=== PATIENT | female | born 1985 | race Caucasian/White ===

== ENCOUNTER 2019-03-09 12:44 | Outpatient (CLI) | payer OTHER ==
[2019-03-09 16:23] LABS: Hematocrit 35.4 % (30.3-42.9); Hemoglobin 11.4 gm/dl (10.1-14.3); Mean Corpuscular HGB Conc 32 % (30-34); Mean Corpuscular Volume 78 fl (79-97); Platelet Count 190 K/mm3 (140-440); Red Blood Count 4.55 M/mm3 (3.65-5.03); Red Cell Distribution Width 16.9 % (13.2-15.2)
[2019-03-09 16:48] LABS: Alanine Aminotransferase 8 units/L (7-56); Uric Acid 4.1 mg/dL (3.5-7.6)
[2019-03-09 19:11] VITALS: BP 120/65
--- NOTE | 2019-03-09 19:12 | Ultrasound Report ---
PROCEDURE: US OB BPP WO NON-STRESS HISTORY: well being FINDINGS: Biophysical profile was performed. Biophysical profile was 8 of 8. cardiac activity i s present at 136 bpm. IMPRESSION: Biophysical 8 of 8 This document is electronically signed by Zev Durant MD., Mar 09 2019 07:10:10 PM ET
== END 2019-03-09 19:30 | disposition home or self-care (01) ==
LOC: TRG 12:44
PROVIDERS: ATTEND Obstetrics & Gynecology
DX: O47.1 False labor at or after 37 completed weeks of gestation (principal); Z3A.39 39 weeks gestation of pregnancy
CPT/HCPCS: 36415; 76819; 82565; 83615; 84450; 84460; 84550; 85027

== ENCOUNTER 2019-03-11 23:16 | Inpatient (IN) | payer MEDICAID, OTHER ==
[2019-03-12] MEDS ORDERED: PITOCin/NS 20 UNIT/1000ML DRIP 20,000 MILLIUNITS/1,000 ML BAG IV ONE ×2 (02:22→06:25)
[2019-03-12] MEDS ORDERED: LACTATED RINGERS 1,000 ML ONE (02:22)
[2019-03-12] MEDS ORDERED: AMPICILLIN/NS 2 GM/100 ML 2 GM/100 ML BAG IV ONE ×2 (02:22→02:32)
[2019-03-12] MEDS ORDERED: BRETHINE IVP PRN (02:32)
[2019-03-12] MEDS ORDERED: MINERAL OIL PO PRN (02:32)
[2019-03-12] MEDS ORDERED: XYLOCAINE 2% INFILTRATI ONE (02:32)
[2019-03-12] MEDS ORDERED: SUBLIMAZE IV PRN (02:32)
[2019-03-12] MEDS ORDERED: STADOL IV PRN (02:32)
[2019-03-12] MEDS ORDERED: BRETHINE SUB-Q PRN (02:32)
[2019-03-12 02:46] LABS: Hematocrit 37.3 % (30.3-42.9); Hemoglobin 12.1 gm/dl (10.1-14.3); Mean Corpuscular HGB Conc 32 % (30-34); Mean Corpuscular Volume 78 fl (79-97); Platelet Count 173 K/mm3 (140-440); Red Blood Count 4.82 M/mm3 (3.65-5.03); Red Cell Distribution Width 17.1 % (13.2-15.2)
[2019-03-12] MEDS ORDERED: LACTATED RINGERS 1,000 ML IV SCH (03:00)
[2019-03-12] MEDS ORDERED: PITOCin/NS 30 UNIT/500ML 30 UNITS/500 ML BAG IV SCH (03:00)
[2019-03-12] MEDS ORDERED: PITOCin/NS 20 UNIT/1000ML DRIP 20 UNITS/1,000 ML BAG IV SCH (03:00)
[2019-03-12] MEDS ORDERED: AMPICILLIN/NS 1 GM/50 ML 1 GM/50 ML BAG IV SCH (06:33)
--- NOTE | 2019-03-12 07:59 | Procedure Note ---
OB Delivery Note - Delivery Date of Delivery: 03/12/19 Surgeon: TIMUR MCCOY (JESS) Estimated blood loss: 200cc - Vaginal Delivery presentation: vertex Delivery position: OA Intrapartum events: none Delivery induction: none Delivery monitor: external FHT, external uterine Route of delivery: (03:49) Delivery placenta: spontaneous (04:02) Delivery cord: 3 umbilical vessels Episiotomy: none Delivery laceration: none Anesthesia: none Delivery comments: viable male infant, JAYNE position at 03:49. placed [id number] on mothers abdomen. Delayed cord clamping then cut by FOB with my guidance. Cord blood collected per protocol. Spontaneous eastman delivery of intact placenta at 04:02. 3VC. Discarded. FF@U-1. Small 1st degree laceration, approximates well, left unrepaired. Infant and mother left in stable condition in L&D. EBL 200ml. - Infant A at 1 minute: 8 at 5 minutes: 9 Infant Gender: Male (8lbs 13oz, 3993 grams, 22")
--- NOTE | 2019-03-12 08:08 | History and Physical Report ---
History of Present Illness Date of examination: 03/12/19 Date of admission: 03/12/19 02:08 Chief complaint: Intense labor pains History of present illness: 33 yo Fe , German 03/12/2019, 40w0d presents in active labor. Pt received care at [facility]. care unremarkable. Past History Past Medical History: no pertinent history Past Surgical History: no surgical history [employer]ORY TEACHER History: denies: abnormal PAP smear, chlamydia, gonorrhea, hepatitis B, hepatitis C, herpes, HIV, syphilis, trichomonas Family/Genetic History: denies: none Social history: no significant social history, , lives with family, full code. denies: smoking, alcohol abuse, prescription drug abuse, IV drug use - Obstetrical History Expected Date of Delivery: 03/12/19 Actual Gestation: 40 Week(s) 0 Day(s) : 5 Para: 4 Hx # Term Pregnancies: 4 Number of Pregnancies: 0 Spontaneous Abortions: 0 Induced : 0 Number of Living Children: 4 Medications and Allergies Allergies Allergy/AdvReac Type Severity Reaction Status Date / Time No Known Allergies Allergy Verified 03/09/19 15:24 Home Medications Medication Instructions Recorded Confirmed Last Taken Type Docusate Sodium [Colace] 100 mg PO BID #60 capsule 07/03/13 Unknown Rx Ferrous Sulfate [Feosol 325 MG tab] 325 mg PO BID #60 tablet 07/03/13 Unknown Rx Vit-Fe Fumar-FA [ 1 each PO ONCE #30 tablet 07/03/13 Unknown Rx Vitamin] Ibuprofen [Motrin] 800 mg PO TID PRN #14 tablet 07/04/13 Unknown Rx Methylergonovine [Methergine] 0.2 mg PO Q8HR #9 tablet 07/04/13 Unknown Rx ALBUTEROL Inhaler (OR & NICU) 2 puff IH QID PRN #1 inhalation 02/15/14 Unknown Rx [ProAir HFA Inhaler] Azithromycin [Zithromax Z-FEDE] 250 mg PO DAILY #6 tablet 02/15/14 Unknown Rx methylPREDNISolone [Medrol Dose 4 mg PO DAILY 6 Days tab 02/15/14 Unknown Rx Fede] Active Meds: Active Medications Acetaminophen (Tylenol) 650 mg PO Q4H PRN PRN Reason: Pain MILD(1-3)/Fever >100.5/CAMPBELL Bisacodyl (Dulcolax) 10 mg MT BID PRN PRN Reason: Constipation Butorphanol Tartrate (Stadol) 2 mg IV Q2H PRN PRN Reason: Pain , Severe (7-10) Diphenhydramine HCl (Benadryl) 25 mg PO Q6H PRN PRN Reason: Itching Ephedrine Sulfate (Ephedrine Sulfate) 10 mg IV Q2M PRN PRN Reason: Hypotension Fentanyl (Sublimaze) 100 mcg IV Q2H PRN PRN Reason: Labor Pain Last Admin: 03/12/19 03:21 Dose: 100 mcg Documented by: Oxytocin/Sodium Chloride (Pitocin/Ns 20 Unit/1000ml Drip) 20 units in 1,000 mls @ 125 mls/hr IV DIRECT DAMION Last Admin: 03/12/19 04:02 Dose: 125 mls/hr Documented by: Oxytocin/Sodium Chloride (Pitocin/Ns 30 Unit/500ml) 30 units in 500 mls @ 1 mls/hr IV TITR DAMION; Protocol Lactated Ringer's (Lactated Ringers) 1,000 mls @ 125 mls/hr IV DIRECT DAMION Ampicillin Sodium (Ampicillin/Ns 1 Gm/50 Ml) 1 gm in 50 mls @ 100 mls/hr IV Q 4HR DAMION; Protocol Ibuprofen (Ibuprofen) 600 mg PO Q6H DAMION Magnesium Hydroxide (Milk Of Magnesia) 30 ml PO HS PRN PRN Reason: Constipation Mineral Oil (Mineral Oil) 30 ml PO QHS PRN PRN Reason: Constipation Multi-Ingredient Ointment (Lansinoh) 1 applic TP PRN PRN PRN Reason: Sore Nipples Ondansetron HCl (Zofran) 4 mg IV Q8H PRN PRN Reason: Nausea And Vomiting Promethazine HCl (Phenergan) 25 mg PO Q6H PRN PRN Reason: Nausea And Vomiting Sodium Chloride (Sodium Chloride Flush Syringe 10 Ml) 10 ml IV PRN NR Terbutaline Sulfate (Brethine) 0.25 mg SUB-Q ONCE PRN PRN Reason: Hyperstimulation/Hypertonicity Terbutaline Sulfate (Brethine) 0.25 mg IVP ONCE PRN PRN Reason: Hyperstimulation/Hypertonicity Witch Carol/Glycerin (Tucks Pad) 1 each TP PRN PRN PRN Reason: Hemorrhoid/cleansing/soothing Review of Systems Eyes: normal appearance Cardiovascular: no chest pain, no shortness of breath Respiratory: no shortness of breath Breasts: normal Gastrointestinal: no nausea, no vomiting, no diarrhea, no constipation Genitourinary: normal appearance, contractions, no leakage of fluid, no genital sores Integumentary: no rash, no sores, no lesions - Vital Signs Vital signs: Vital Signs Pulse BP 76 128/66 03/12/19 02:08 03/12/19 02:08 Temp Pulse Resp BP Pulse Ox 98.6 F 82 18 103/47 96 03/12/19 05:47 03/12/19 05:47 03/12/19 05:47 03/12/19 05:47 03/12/19 05:47 - Physical Exam Breasts: Positive: normal Cardiovascular: Regular rate, Normal S1, Normal S2, No murmurs Lungs: Positive: Clear to auscultation, Normal air movement Abdomen: Positive: normal appearance, soft, normal bowel sounds. Negative: distention Genitourinary (Female): Positive: normal external genitalia, normal perenium Vulva: both: normal Vagina: Positive: normal moisture Uterus: Positive: enlarged (Gravid) Anus/Rectum: Positive: normal perianal skin Extremities: Positive: normal - Obstetrical FHR: auscultation normal, category 1 Uterine Contraction Monitor Mode: External Cervical Dilatation: 10 (4 on admission per RN) Cervical Effacement Percentage: 100 station: +1 Uterine Contraction Pattern: Regular Uterine Tone Measurement Phase: Resting Uterine Contraction Intensity: Strong/Firm Results Result Diagrams: 03/12/19 02:35 Abnormal lab results 03/12/19 Range/Units 02:35 MCV 78 L (79-97) fl MCH 25 L (28-32) pg RDW 17.1 H (13.2-15.2) % All other labs normal. Assessment and Plan A: Term IUP at 40w0d Active labor Category 1 tracing GBS positive P: Admit to L&D; Routine labor orders GBS prophylaxis Anticipate
[2019-03-12] MEDS ORDERED: TUCKS PAD TP PRN (08:30)
[2019-03-12] MEDS ORDERED: BENADRYL PO PRN (08:30)
[2019-03-12] MEDS ORDERED: PHENERGAN PO PRN (08:30)
[2019-03-12] MEDS ORDERED: ZOFRAN IV PRN (08:30)
[2019-03-12] MEDS ORDERED: LANSINOH TP PRN (08:30)
[2019-03-12] MEDS ORDERED: TYLENOL PO PRN (08:30)
[2019-03-12] MEDS: IBUPROFEN PO SCH ×3 (08:35→21:37)
[2019-03-12] MEDS ORDERED: SODIUM CHLORIDE FLUSH SYRINGE 10 ML IV PRN (09:00)
[2019-03-12] MEDS ORDERED: DULCOLAX PR PRN (10:00)
--- NOTE | 2019-03-12 11:29 | Event Note ---
Date: 03/12/19 (11:00) To pt bedside per nurse request to assess bleeding. Fundus firm but deviated to the right with bladder distended. Bleeding small. No clots expressed. Encouraged frequent emptying of bladder. Will order methergine 0.2mcg q8 d/t grandmultip status.
[2019-03-12] MEDS: METHERGINE PO SCH ×2 (13:40→21:37)
[2019-03-12 19:09] LABS: Hematocrit 34.1 % (30.3-42.9)
[2019-03-12] MEDS ORDERED: MILK OF MAGNESIA PO PRN (22:00)
[2019-03-13] MEDS: IBUPROFEN PO SCH ×4 (03:43→22:16)
[2019-03-13] MEDS: METHERGINE PO SCH ×3 (06:21→22:14)
--- NOTE | 2019-03-13 13:54 | Progress Note ---
Assessment and Plan A: day 1 S/P spontaneous vaginal delivery. Heart murmur. P: Discussed heart murmur with patient. 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 Will consult with re: this patient. Anticipate discharge tomorrow. Subjective - Subjective Date of service: 03/13/19 Principal diagnosis: day 1 S/P spontaneous vaginal delivery Interval history: day 1 S/P spontaneous vaginal delivery. Doing well. Patient reports a small amount of lochia. She is voiding without difficulty, ambulating well, tolerating a regular diet without nausea or vomiting. Patient denies headache, dizziness, chest pain, shortness of breath, cough, leg pain, abdominal pain, or heavy bleeding. Patient reports: appetite normal, voiding normally, pain well controlled, flatus, ambulating normally, no dizzy ambulation, no nauseated : doing well Objective - Vital Signs Latest vital signs: Vital Signs Temp Pulse Resp BP BP Pulse Ox 03/13/19 07:38 97.2 F L 72 18 94/48 96 03/13/19 00:28 98.8 F 87 20 112/49 97 03/12/19 15:57 98.2 F 76 18 98/48 96 Intake and Output 03/12/19 03/13/19 03/13/19 23:59 07:59 15:59 Intake Total 600 240 Balance 600 240 Intake: Oral 360 240 Intake, Free Water 240 Other: Total, Intake Amount 360 240 # Voids Void 1 1 - Exam Cardiovascular: Present: Regular rate, Normal S1, Normal S2, Other (heart murmur heard) Abdomen: Present: normal appearance, soft, normal bowel sounds. Absent: distention, tenderness, guarding, rigidity Uterus: Present: normal, firm, fundal height below umbilicus. Absent: bogginess, tenderness Extremities: Present: normal, edema (bilateral pedal edema). Absent: tenderness
[2019-03-14] MEDS: IBUPROFEN PO SCH ×3 (03:51→17:00)
[2019-03-14] MEDS: METHERGINE PO SCH (05:48)
--- NOTE | 2019-03-14 12:50 | Progress Note ---
Assessment and Plan A: day 2 S/P spontaneous vaginal delivery. Heart murmur, denies symptoms. P: Consulted with Dr. Ceron re: patient and he states it is OK for patient to follow up with cardiology as an outpatient to evaluate heart murmur. Plan to discharge patient home today. Advised patient to call [facility] and schedule a follow up appointment so that cardiology referral can be made to evaluate heart murmur as soon as possible. discharge instructions and warning signs discussed with patient in detail. Advised patient to avoid intercourse, lifting and heavy housework, driving. Advised patient to continue taking her vitamins at home. Patient voiced understanding of all instructions. Subjective - Subjective Date of service: 03/14/19 Principal diagnosis: day 2 S/P spontaneous vaginal delivery Interval history: day 2 S/P spontaneous vaginal delivery. Doing well. Patient reports a small amount of lochia. She is voiding without difficulty, ambulating well, tolerating a regular diet without nausea or vomiting. Patient denies headache, dizziness, chest pain, shortness of breath, cough, leg pain, abdominal pain, or heavy bleeding. Patient desires discharge today. Patient reports: appetite normal, voiding normally, pain well controlled, flatus, ambulating normally, no dizzy ambulation, no nauseated Cushing: doing well Objective - Vital Signs Latest vital signs: Vital Signs Temp Pulse Resp BP BP Pulse Ox 03/14/19 12:13 98.0 F 79 20 121/60 98 03/14/19 07:14 98.3 F 75 16 112/63 96 03/13/19 23:46 97.8 F 81 20 117/68 97 03/13/19 17:59 98.4 F 70 18 134/68 97 Intake and Output 03/13/19 03/14/19 03/14/19 23:59 07:59 15:59 Intake Total 640 120 Balance 640 120 Intake: Oral 540 120 Intake, Free Water 100 Other: Total, Intake Amount 240 120 # Voids Void 1 1 - Exam Cardiovascular: Present: Regular rate, Normal S1, Normal S2, Other (murmur heard) Lungs: Present: Clear to auscultation Abdomen: Present: normal appearance, soft. Absent: distention, tenderness, guarding, rigidity Uterus: Present: normal, firm, fundal height below umbilicus. Absent: bogginess, tenderness Extremities: Present: normal, edema (pedal edema bilaterally). Absent: tenderness
--- NOTE | 2019-03-14 13:13 | Discharge Summary ---
Providers - Providers Date of Admission: 03/12/19 02:08 Date of discharge: 03/14/19 Attending physician: KEVIN PRINGLE MD None Primary care physician: KENNEDY MONTAÑO Hospitalization Reason for admission: active labor Delivery: Episiotomy: none Other procedures: none Discharge diagnosis: IUP at term delivered baby: male Pertinent studies: Labs Hospital course: Normal hospital course. Condition at discharge: Good Disposition: DC-01 TO HOME OR SELFCARE - Discharge Diagnoses (1) Term delivered Status: Acute Plan - Provider Discharge Summary Activity: routine, no sex for 6 weeks, no heavy lifting 4 weeks, no strenuous exercise Diet: routine Instructions: routine Additional instructions: Call your doctor immediately for: * Fever > 100.5 * Heavy vaginal bleeding ( >1 pad per hour) * Severe persistent headache * Shortness of breath * Reddened, hot, painful area to leg or breast - Follow up plan Follow up: KENNEDY MONTAÑO MD [Primary Care Provider] - 7 Days
[2019-03-14 16:34] VITALS: BP 127/70
== END 2019-03-14 16:55 | disposition home or self-care (01) | DRG 807 ==
LOC: TRG 23:16 → LD 03-12 02:08 → OB 03-12 05:39
PROVIDERS: ADMIT Obstetrics & Gynecology; ATTEND Obstetrics & Gynecology
PROC: 10E0XZZ Delivery of Products of Conception, External Approach (ICD-10-PCS; principal; 2019-03-12)
DX: O99.42 Diseases of the circulatory system complicating childbirth (principal); Z37.0 Single live birth; R01.1 Cardiac murmur, unspecified; O99.824 Streptococcus B carrier state complicating childbirth; Z3A.40 40 weeks gestation of pregnancy; Z79.899 Other long term (current) drug therapy
CPT/HCPCS: 36415; 85014; 85018; 85027; 86592; 86850; 86900; 86901; G0378; J0290; J2590; J3010; J7120

== ENCOUNTER 2020-05-10 16:50 | Inpatient (IN) | payer OTHER ==
[2020-05-10 17:54] LABS: Hemoglobin 10.9 gm/dl (10.1-14.3); Mean Corpuscular HGB Conc 31 % (30-34); Mean Corpuscular Volume 74 fl (79-97); Platelet Count 202 K/mm3 (140-440); Red Blood Count 4.71 M/mm3 (3.65-5.03); Red Cell Distribution Width 18.3 % (13.2-15.2)
[2020-05-10 17:55] LABS: Bilirubin,Urine NEG (Negative); Blood,Urine NEG (Negative); Color,Urine Yellow (Yellow); Mucus,Urine FEW /HPF; Urobilinogen,Urine < 2.0 mg/dL (<2.0)
[2020-05-10 17:56] LABS: Protein,Urine >500 mg/dL (Negative)
[2020-05-10 18:14] LABS: Alanine Aminotransferase 7 units/L (7-56); Uric Acid 4.9 mg/dL (3.5-7.6)
[2020-05-10] MEDS ORDERED: LACTATED RINGERS 1,000 ML IV ONE (19:13)
[2020-05-10] MEDS ORDERED: ACETAMINOPHEN 325 MG TAB PO PRN ×2 (20:22→20:24)
[2020-05-10] MEDS ORDERED: DOCUSATE SODIUM 100 MG CAP PO PRN ×2 (20:22→20:24)
[2020-05-10] MEDS ORDERED: BUTORPHANOL 2 MG/1 ML INJ IV PRN (20:28)
[2020-05-10] MEDS ORDERED: OXYTOCIN 20 UNIT/1000ML DRIP 20 UNITS/1,000 ML BAG IV SCH (21:00)
[2020-05-10] MEDS ORDERED: OXYTOCIN DRIP 30 UNITS/500 ML BAG IV SCH (21:00)
[2020-05-10] MEDS ORDERED: LACTATED RINGERS 1,000 ML IV SCH (22:00)
[2020-05-10] MEDS ORDERED: miSOPROStol 200 MCG TAB ONE (23:57)
[2020-05-10] MEDS ORDERED: METHYLERGONOVINE MALEATE 0.2 MG/ML VIAL IM ONE (23:57)
[2020-05-11] MEDS ORDERED: HYDROcodone/ACETAMINOPHEN 5-325 MG TAB PO PRN (00:37)
[2020-05-11] MEDS ORDERED: LANOLIN/ZINC/DIMETHICONE (LANSINOH) 7 GM TP PRN (00:37)
[2020-05-11] MEDS ORDERED: diphenhydrAMINE 25 MG CAP PO PRN (00:37)
[2020-05-11] MEDS ORDERED: MAGNESIUM HYDROXIDE (MOM) ORAL LIQD UDC PO PRN (00:37)
[2020-05-11] MEDS ORDERED: WITCH HAZEL/ GLYCERIN PAD TP PRN (00:37)
--- NOTE | 2020-05-11 00:45 | History and Physical Report ---
History of Present Illness Date of examination: 05/11/20 Date of admission: 05/10/20 20:24 Chief complaint: Compliant of CAMPBELL with visual changes, and swelling of the feet. History of present illness: care at [facility], course complicated by abnormal 1hour Gtt, followed by normal 3hour GTT. Third trimester complicated by Proteinuria Past History Past Medical History: no pertinent history Past Surgical History: no surgical history Family/Genetic History: diabetes (father) Social history: no significant social history, - Obstetrical History Expected Date of Delivery: 05/10/20 Actual Gestation: 40 Week(s) 1 Day(s) : 6 Para: 5 Hx # Term Pregnancies: 5 Number of Living Children: 5 Medications and Allergies Allergies Allergy/AdvReac Type Severity Reaction Status Date / Time No Known Allergies Allergy Verified 03/09/19 15:24 Home Medications Medication Instructions Recorded Confirmed Last Taken Type Docusate Sodium [Colace] 100 mg PO BID #60 capsule 07/03/13 Unknown Rx Ferrous Sulfate [Feosol 325 MG tab] 325 mg PO BID #60 tablet 07/03/13 Unknown Rx Vit-Fe Fumar-FA [ 1 each PO ONCE #30 tablet 07/03/13 Unknown Rx Vitamin] Ibuprofen [Motrin] 800 mg PO TID PRN #14 tablet 07/04/13 Unknown Rx Methylergonovine [Methergine] 0.2 mg PO Q8HR #9 tablet 07/04/13 Unknown Rx Albuterol Mdi (or & Nicu Only) 2 puff IH QID PRN #1 inhalation 02/15/14 Unknown Rx [ProAir HFA Inhaler] Azithromycin [Zithromax Z-ABELINO] 250 mg PO DAILY #6 tablet 02/15/14 Unknown Rx methylPREDNISolone [Medrol Dose 4 mg PO DAILY 6 Days tab 02/15/14 Unknown Rx Abelino] Active Meds: Active Medications Acetaminophen (Tylenol) 650 mg PO Q4H PRN PRN Reason: Pain MILD(1-3)/Fever >100.5/CAMPBELL Acetaminophen (Tylenol) 650 mg PO Q4H PRN PRN Reason: Pain MILD(1-3)/Fever >100.5/CAMPBELL Acetaminophen/Hydrocodone Bitart ([place] 5/325) 2 each PO Q6H PRN PRN Reason: Pain, Moderate (4-6) Bisacodyl (Dulcolax) 10 mg ND BID PRN PRN Reason: Constipation Butorphanol Tartrate (Stadol) 2 mg IV Q3H PRN PRN Reason: Labor Pain Diphenhydramine HCl (Benadryl) 25 mg PO Q6H PRN PRN Reason: Itching Docusate Sodium (Colace) 100 mg PO Q12H PRN PRN Reason: Constipation Docusate Sodium (Colace) 100 mg PO Q12H PRN PRN Reason: Constipation Oxytocin/Sodium Chloride (Pitocin/Ns 20 Unit/1000ml Drip) 20 units in 1,000 mls @ 0 mls/hr IV TITR DAMION Last Admin: 05/11/20 00:15 Dose: 125 mls/hr Documented by: Oxytocin/Sodium Chloride (Pitocin/Ns 30 Unit/500ml) 30 units in 500 mls @ 2 mls/hr IV TITR DAMION; Protocol Last Admin: 05/10/20 21:30 Dose: 2 ml/hr, 2 mls/hr Documented by: Lactated Ringer's (Lactated Ringers) 1,000 mls @ 125 mls/hr IV DIRECT DAMION Ibuprofen (Ibuprofen) 600 mg PO Q6H DAMION Magnesium Hydroxide (Milk Of Magnesia) 30 ml PO HS PRN PRN Reason: Constipation Multi-Ingredient Ointment (Lansinoh) 1 applic TP PRN PRN PRN Reason: Sore Nipples Multivitamins/Iron/Calcium ( Vitamin) 1 each PO QDAY DAMION Multivitamins/Iron/Calcium ( Vitamin) 1 each PO QDAY DAMION Sodium Chloride (Sodium Chloride Flush Syringe 10 Ml) 10 ml IV PRN NR Witch Carol/Glycerin (Tucks Pad) 1 each TP PRN PRN PRN Reason: Hemorrhoid/cleansing/soothing Review of Systems All systems: negative - Vital Signs Vital signs: Vital Signs Pulse BP 79 124/65 05/10/20 17:30 05/10/20 17:30 Temp Pulse Resp BP Pulse Ox 98.5 F 94 H 18 152/86 78 L 05/10/20 20:00 05/11/20 00:04 05/10/20 20:00 05/11/20 00:04 05/10/20 23:39 - Physical Exam Breasts: Positive: normal Cardiovascular: Regular rate Lungs: Positive: Clear to auscultation, Normal air movement Abdomen: Positive: normal appearance, soft, normal bowel sounds Genitourinary (Female): Positive: normal external genitalia, normal perenium Vagina: Positive: normal moisture Uterus: Positive: enlarged Anus/Rectum: Positive: normal perianal skin Extremities: Positive: edema - Obstetrical FHR: auscultation normal Uterine Contraction Monitor Mode: External Results Result Diagrams: 05/10/20 17:24 05/10/20 17:24 Abnormal lab results 05/10/20 05/10/20 Range/Units 17:24 17:24 MCV 74 L (79-97) fl MCH 23 L (28-32) pg RDW 18.3 H (13.2-15.2) % Creatinine 0.4 L (0.7-1.2) mg/dL Lactate Dehydrogenase 189 H (91-180) units/L All other labs normal. Assessment and Plan A: IUP @ 40 Weeks CAMPBELL Proteinuria GBS Positive P: Admit to L&D per Routine ORders Pitocin Induction GBS prophylaxis
--- NOTE | 2020-05-11 00:54 | Procedure Note ---
OB Delivery Note - Delivery Date of Delivery: 05/11/20 Surgeon: MIGUEL ÁNGEL WEN Estimated blood loss: 300cc - Vaginal Delivery presentation: vertex Delivery position: OA Intrapartum events: precipitous labor- <3hr Delivery induction: oxytocin Delivery augmentation: pitocin Delivery monitor: external FHT, external uterine Route of delivery: Delivery placenta: spontaneous Episiotomy: none Delivery laceration: none Anesthesia: none Delivery comments: Preciptious vaginal delivery of a 8'7 female over a intact perineum without pain control with Apgars of 7 and 9 at 2340 on 05/10/2020. Spontaneous delivery of placenta complete and intact. Fundus is firm and midline located 4 below the U. Lochia is scant. - A at 1 minute: 7 at 5 minutes: 9 Infant Gender: Female (8'7)
[2020-05-11] MEDS: IBUPROFEN 600 MG TAB PO SCH (05:33)
[2020-05-11] MEDS ORDERED: PRENATAL VIT27-FE FUMARATE-FOLIC ACID VIT TAB PO SCH ×2 (10:00)
[2020-05-11 12:46] LABS: Hematocrit 30.7 % (30.3-42.9); Hemoglobin 9.6 gm/dl (10.1-14.3)
[2020-05-12] MEDS: IBUPROFEN 600 MG TAB PO SCH ×4 (06:00→18:31)
--- NOTE | 2020-05-12 09:47 | Progress Note ---
Assessment and Plan - Patient Problems (1) Status post normal vaginal delivery Current Visit: Yes Status: Acute Plan to address problem: D/C today per request F/U at office in 6 wks for routine PP visit (2) Anemia Current Visit: Yes Status: Acute Qualifiers: Anemia type: other cause Other causes of anemia: acute posthemorrhagic Qualified Code(s): D62 - Acute posthemorrhagic anemia Plan to address problem: Asymptomatic Increase iron rich foods into diet Subjective - Subjective Date of service: 05/12/20 Principal diagnosis: S/P ;PPD#1 Interval history: See admission H & P and OB delivery summary; PP progress notes Patient reports: appetite normal, voiding normally, pain well controlled, flatus, ambulating normally, other (Doing well, request to go home today) : doing well, bottle feeding Objective - Vital Signs Latest vital signs: Vital Signs Temp Pulse Resp BP Pulse Ox 05/12/20 08:16 97.6 F 77 18 123/56 97 05/12/20 06:00 18 05/12/20 00:29 97.8 F 78 20 113/60 97 05/12/20 00:00 18 05/11/20 17:01 98.4 F 78 18 121/60 97 Intake and Output 05/11/20 05/12/20 05/12/20 23:59 07:59 15:59 Intake Total 240 480 Balance 240 480 Intake: Oral 240 240 Intake, Free Water 240 Other: Total, Intake Amount 240 240 # Voids Void 1 1 - Exam Breasts: Present: normal Cardiovascular: Present: Regular rate Lungs: Present: Normal air movement Abdomen: Present: soft Uterus: Present: firm, fundal height below umbilicus (U-2) Extremities: Present: normal Deep Tendon Reflex Grade: Normal +2 - Labs Labs: Abnormal lab results 05/11/20 Range/Units 12:04 Hgb 9.6 L (10.1-14.3) gm/dl
--- NOTE | 2020-05-12 09:50 | Discharge Summary ---
Providers - Providers Date of Admission: 05/10/20 20:24 Date of discharge: 05/12/20 (1200) Attending physician: MAYNOR MONTE Primary care physician: MAYNOR MONTE Hospitalization Reason for admission: active labor Delivery: Episiotomy: none Laceration: none Other procedures: none complications: none Discharge diagnosis: IUP at term delivered, other (Anemia) [place] baby: female Hospital course: See admission H & P and OB delivery summary; PP progress notes Condition at discharge: Good Disposition: DC-01 TO HOME OR SELFCARE - Discharge Diagnoses (1) Status post normal vaginal delivery Status: Acute (2) Anemia Status: Acute Qualifiers: Anemia type: other cause Other causes of anemia: acute posthemorrhagic Qualified Code(s): D62 - Acute posthemorrhagic anemia Plan - Provider Discharge Summary Activity: routine, no sex for 6 weeks, no heavy lifting 4 weeks, no strenuous exercise Diet: other (Iron rich diet) Instructions: routine Additional instructions: [] Smoking cessation referral if applicable(refer to patient education folder for contact #) [] Refer to [facility]'s [facility] Booklet Call your doctor immediately for: * Fever > 100.5 * Heavy vaginal bleeding ( >1 pad per hour) * Severe persistent headache * Shortness of breath * Reddened, hot, painful area to leg or breast - Follow up plan Follow up: MAYNOR MONTE MD [Primary Care Provider] - 6 Weeks Forms: [facility] Discharge Summary
[2020-05-12 17:16] VITALS: BP 118/60
== END 2020-05-12 18:41 | disposition home or self-care (01) | DRG 806 ==
LOC: TRG 16:50 → APU 16:53 → LD 20:24 → OBSVTOIN 20:24 → TRG 20:24 → OB 05-11 01:52
PROVIDERS: ADMIT Obstetrics & Gynecology; ATTEND Obstetrics & Gynecology
PROC: 10E0XZZ Delivery of Products of Conception, External Approach (ICD-10-PCS; principal; 2020-05-11)
PROC: 3E033VJ Introduction of Other Hormone into Peripheral Vein, Percutaneous Approach (ICD-10-PCS; 2020-05-11)
DX: O62.3 Precipitate labor (principal); D62 Acute posthemorrhagic anemia; Z37.0 Single live birth; O99.824 Streptococcus B carrier state complicating childbirth; O12.14 Gestational proteinuria, complicating childbirth; O99.02 Anemia complicating childbirth; Z3A.40 40 weeks gestation of pregnancy; Z83.3 Family history of diabetes mellitus; Z79.899 Other long term (current) drug therapy
CPT/HCPCS: 36415; 59025; 81001; 82565; 83615; 84450; 84460; 84550; 85014; 85018; 85027; 86850; 86900; 86901; 96360; G0378; J2210